=== PATIENT | male | born 1970 | race Caucasian/White ===

== ENCOUNTER 2019-09-20 18:20 | Emergency (ER) | payer OTHER, SELFPAY ==
[~2019-09-20] VITALS: Ht 175.3 cm; Wt 117.0 kg
[~2019-09-20 18:20] MED LIST: APAP/HYDROCODON1 T13 PO; COL100 PO; FLAGYL500 MG PO; LAC PO; LEVAQUIN500 MG PO
[2019-09-20 18:38] VITALS: Ht 175.3 cm; Wt 117.0 kg
[2019-09-20 19:35] VITALS: BP 156/94
== END 2019-09-20 19:35 | disposition home or self-care (01) ==
LOC: ED 18:20
DX: U07.1 COVID-19 (principal); B34.9 Viral infection, unspecified; Z90.89 Acquired absence of other organs
CPT/HCPCS: U0003-CS